=== PATIENT | female | born 1980 | race African-American/Black ===

== ENCOUNTER 2021-01-04 08:56 | Outpatient (CLI) | payer OTHER, SELFPAY ==
--- NOTE | ~2021-01-04 | MM_ITS ---
EXAMINATION: MM screening [facility] BI w berenice HISTORY: Screening mammogram TECHNIQUE: Craniocaudal and mediolateral oblique 3-D tomosynthesis images were obtained and synthetic 2-D images were generated. CAD analysis was submitted and interpreted. COMPARISON: 03/23/2019, 01/11/2014 BREAST PARENCHYMAL COMPOSITION: The breasts are heterogeneously dense, which may obscure small masses . FINDINGS: There is no evidence of suspicious mass, calcification, or architectural distortion to sugg est malignancy in either breast. There has been no suspicious interval change. IMPRESSION: 1. No mammographic evidence of malignancy. 2. Recommend routine screening mammography in one year. BI-RADS Category 1: Negative Reviewed, dictated and finalized at location A.
== END 2021-01-04 08:57 | disposition home or self-care (01) ==
LOC: ANHIMG 08:58
PROVIDERS: PCP Family Medicine; Visit Provider Nurse Practitioner Obstetrics & Gynecology
DX: Z12.31 Encounter for screening mammogram for malignant neoplasm of breast (principal)
CPT/HCPCS: 77063; 77067

== ENCOUNTER 2021-05-06 09:50 | Emergency (ER) | payer OTHER, SELFPAY ==
[2021-05-06 10:02] VITALS: BP 116/72; PULSE 77; RESP 18; TEMP 36.3; O2SAT 100
--- NOTE | 2021-05-06 10:05 | ED.GENADULT ---
HPI - General Adult General Chief complaint: Unspecified Stated complaint: Headache,Nausea,Fever Time Seen by Provider: 05/06/21 10:05 Source: patient and RN notes reviewed Mode of arrival: ambulatory Limitations: no limitations History of Present Illness HPI narrative: 40-year-old female presents to the [facility] with complaints of generalized body aches, fever, nausea and headache. Reports a fever of 99.7 this morning, has taken ibuprofen. Reports getting the Covid vaccine back in February. Denies any throat pain, ear pain. No sinus symptoms. Patient reports I just do not feel good. Related Data Home Medications Medication Instructions Recorded Confirmed bupropion HCl [Wellbutrin SR] 100 mg PO BID 09/17/19 05/06/21 brexpiprazole [Rexulti] 3 mg PO DAILY 05/06/21 05/06/21 citalopram 20 mg PO DAILY 05/06/21 05/06/21 trazodone 250 mg PO DAILY 05/06/21 05/06/21 Allergies Allergy/AdvReac Type Severity Reaction Status Date / Time peanut Allergy Severe Anaphylactic Verified 05/06/21 10:21 Shock aripiprazole Allergy Unknown Seizure Verified 05/06/21 10:21 codeine Allergy Unknown Shakes Verified 05/06/21 10:21 doxycycline Allergy Unknown Nausea Verified 05/06/21 10:21 paroxetine Allergy Unknown Weight gain Verified 05/06/21 10:21 Penicillins Allergy Unknown Skin Verified 05/06/21 10:21 Reaction prochlorperazine Allergy Unknown Asthma Verified 05/06/21 10:21 ASENAPINE MALEATE Allergy Unknown Unknown Uncoded 05/06/21 10:21 Review of Systems Review of Systems: All systems reviewed & are unremarkable except as noted in HPI and below Constitutional: Constitutional: Reports as per HPI, Reports no additional constitutional complaints, Reports body ache(s) and Reports fever(s) Eyes: Eyes: Reports no additional eye complaints ENT: Reports system reviewed and no additional complaints, except as documented, Denies change in voice, Denies dizziness, Denies ear discharge, Denies facial pain, Denies headache(s), Denies hoarseness, Denies lip swelling, Denies mouth pain, Denies nasal congestion, Denies nasal discharge, Denies neck pain, Denies post nasal drip, Denies sinus pain, Denies sinus pressure and Denies sore throat Cardiovascular: Cardiovascular: Reports no additional cardiovascular complaints and Denies chest pain Respiratory: Respiratory: Reports no additional respiratory complaints, Denies cough, Denies dyspnea and Denies dyspnea on exertion Gastrointestinal: Gastrointestinal: Reports no additional gastrointestinal complaints Musculoskeletal: Musculoskeletal: Reports as per HPI, Denies back pain, Reports myalgias, Denies arthralgias, Denies joint swelling, Denies muscle cramps, Denies muscle weakness and Denies stiffness Integumentary/Breasts: Skin/Breast: Reports system reviewed and no additional complaints, except as docu Neurologic: Reports as per HPI and Reports headache(s) Psychiatric: Psychiatric: Reports no additional psychiatric complaints Allergic/Immunologic: Allergic/Immunologic: Reports no additional allergic/immunologic complaints [facility] Past Medical History Medical History (Updated 05/06/21 @ 10:41 by Ema Diop) History of asthma History of depression Surgical History Surgical History H/O tubal ligation History of dilation and curettage History of hernia repair groin Family History Family History Father Cancer Mother No problems noted. Social History Social History Smoking status: Former smoker Smoking end date: 10/12/16 Alcohol intake: never Gender identity (if verbalized by the patient): Female Comments At the time of my signature, I reviewed and agree with the nursing past medical, surgical, social, and family history. There is no relevant family history pertinent to the patient complaint. Exam Const:
[2021-05-06] MEDS: ACETAMINOPHEN 500 MG TABLET 1000 MG PO (10:15)
[2021-05-07 15:38] LABS: SARS-CoV-2 RNA PCR Negative
== END 2021-05-06 10:47 | disposition home or self-care (01) ==
PROVIDERS: Emergency Provider Nurse Practitioner; PCP Family Medicine
DX: B34.9 Viral infection, unspecified (principal); Z20.822 Contact with and (suspected) exposure to COVID-19; Z87.891 Personal history of nicotine dependence; J45.909 Unspecified asthma, uncomplicated; F32.9 Major depressive disorder, single episode, unspecified
CPT/HCPCS: 87081; 87880; 99213; A9270; C9803; G0463; U0003; U0005

== ENCOUNTER 2021-10-13 14:36 | Emergency (ER) | payer OTHER, SELFPAY ==
[2021-10-13 15:13] VITALS: BP 129/87; PULSE 75; RESP 16; TEMP 36.6; O2SAT 99
--- NOTE | 2021-10-13 15:36 | ED.FEMALEGU ---
HPI - Female Genitourinary General Chief complaint: [employer] Stated complaint: bump on vaginal area Time Seen by Provider: 10/13/21 16:06 Source: patient and RN notes reviewed Mode of arrival: ambulatory Limitations: no limitations History of Present Illness HPI Narrative: 41-year-old female presents concern for a painful bump in the crease of her right thigh. She reports ear is been there for several days and is not improving. She reports a history of similar problems that have resolved on their own. She reports she tried to pop the area without relief. She denies genital lesions, dysuria. She denies MD elicited complaint: genital swelling and other Related Data Home Medications Medication Instructions Recorded Confirmed bupropion HCl [Wellbutrin SR] 100 mg PO BID 09/17/19 05/06/21 brexpiprazole [Rexulti] 3 mg PO DAILY 05/06/21 05/06/21 citalopram 20 mg PO DAILY 05/06/21 05/06/21 trazodone 250 mg PO DAILY 05/06/21 05/06/21 Allergies Allergy/AdvReac Type Severity Reaction Status Date / Time peanut Allergy Severe Anaphylactic Verified 10/13/21 16:13 Shock aripiprazole Allergy Unknown Seizure Verified 10/13/21 16:13 codeine Allergy Unknown Shakes Verified 10/13/21 16:13 doxycycline Allergy Unknown Nausea Verified 10/13/21 16:13 paroxetine Allergy Unknown Weight gain Verified 10/13/21 16:13 Penicillins Allergy Unknown Skin Verified 10/13/21 16:13 Reaction prochlorperazine Allergy Unknown Asthma Verified 10/13/21 16:13 ASENAPINE MALEATE Allergy Unknown Unknown Uncoded 05/06/21 10:21 Review of Systems Review of Systems: CONSTITUTIONAL: Denies malaise, chills, sweats, or fever. CARDIOVASCULAR: Denies chest pain, palpitations, or edema. RESPIRATORY: Denies cough or dyspnea. GASTROINTESTINAL: Denies abdominal pain, nausea, vomiting, diarrhea GENITOURINARY: Reports dysuria, frequency, urgency, suprapubic pressure. Denies flank pain or hematuria. SKIN: Reports a painful bump in the crease of her right thigh MUSCULOSKELETAL: Denies back pain or myalgia. All systems reviewed & are unremarkable except as noted in HPI and below PMFSH Past Medical History Medical History (Updated 10/13/21 @ 16:15 by Ema Hdz NP) History of asthma History of depression Surgical History Surgical History H/O tubal ligation History of dilation and curettage History of hernia repair groin Family History Family History Father Cancer Mother No problems noted. Social History Social History Smoking status: Former smoker Smoking end date: 10/12/16 Alcohol intake: never Gender identity (if verbalized by the patient): Female Comments At time of signature, agree with nursing past medical, surgical, social and family history. There is no relevant family history pertinent to the presenting complaint Exam Narrative: GENERAL: Well-appearing, well-nourished, and in no acute distress. HEAD: Normocephalic. EYES: PERRLA, conjunctivae clear. NECK: Supple. No lymphadenopathy CHEST: Clear to auscultation. No respiratory distress. HEART: Regular rate and rhythm. SKIN: Warm, dry, no rash. NEURO: Alert and oriented x3. PSYCH: Normal mood and affect : Female genitals images: 1. Hard palpable tender cyst, nonfluctuant without surrounding erythema, edema or induration Course Course Emergency Course: Patient is aware of diagnosis, understands and agrees to treatment plan. Anticipatory guidance given. Patient agrees to follow-up as directed and is aware of reasons to seek care at the emergency department. Portions of this record may have been created with voice recognition software Level of Care: Express Care Visit Vital Signs Vital signs: Vital Signs Temperature 97.8 F 10/13/21 15:13 Pulse Rate 75 10/13/21 15:13 Respiratory Rate 16 10/13/21 15
== END 2021-10-13 16:20 | disposition home or self-care (01) ==
PROVIDERS: Emergency Provider Nurse Practitioner; PCP Family Medicine
DX: L72.9 Follicular cyst of the skin and subcutaneous tissue, unspecified (principal); J45.909 Unspecified asthma, uncomplicated; F32.9 Major depressive disorder, single episode, unspecified; Z87.891 Personal history of nicotine dependence
CPT/HCPCS: 99213; G0463

== ENCOUNTER 2022-02-07 09:45 | Outpatient (CLI) | payer OTHER, SELFPAY ==
--- NOTE | ~2022-02-07 | MM_ITS ---
EXAMINATION: MM screening [facility] BI w berenice HISTORY: Screening TECHNIQUE: Craniocaudal and mediolateral oblique 3-D tomosynthesis images were obtained and synthetic 2-D images were generated. CAD analysis was submitted and interpreted. COMPARISON: Comparison to multiple prior studies sequentially, with oldest reviewed study dated 11/2013. BREAST PARENCHYMAL COMPOSITION: The breasts are heterogenously dense, which may obscure small masses FINDINGS: There is a new mass in the lower outer quadrant of the right breast posteriorly. There is a new focal asymmetry medially in the left breast on CC view, posteriorly. IMPRESSION: 1. New right breast mass and focal left breast asymmetry. 2. Additional mammographic views and possible breast ultrasound are recommended. BI-RADS Category 0: Incomplete: Needs additional imaging evaluation. Reviewed, dictated and finalized at location A. IMPRESSION: 1. New right breast mass and focal left breast asymmetry. 2. Additional mammographic views and possible breast ultrasound are recommended . BI-RADS Category 0: Incomplete: Needs additional imaging evaluation.
== END 2022-02-07 09:46 | disposition home or self-care (01) ==
LOC: ANHIMG 09:46
PROVIDERS: PCP Family Medicine; Visit Provider Nurse Practitioner Obstetrics & Gynecology
DX: Z12.31 Encounter for screening mammogram for malignant neoplasm of breast (principal); R92.8 Other abnormal and inconclusive findings on diagnostic imaging of breast
CPT/HCPCS: 77063; 77067

== ENCOUNTER 2022-03-14 11:16 | Outpatient (CLI) | payer OTHER, SELFPAY ==
--- NOTE | ~2022-03-14 | MMUS_ITS ---
EXAMINATION: MM diagnostic [facility] BI w berenice, US breast BI complete HISTORY: New posterior lower outer quadrant right breast mass and focal left breast asymmetry reporte d on February 07, 2022 bilateral screening mammogram examinations TECHNIQUE: Additional 3-D tomosynthesis images of both breasts were performed and synthetic 2-D image s were generated. CAD analysis was submitted and interpreted. High resolution complete bilateral redd st ultrasound including all 4 quadrants and subareolar areas was performed. COMPARISON: bilateral screening mammogram FINDINGS: MAMMOGRAPHIC FINDINGS: Approximately 6.3 x 5.8 x 15 mm circumscribed opacity is noted in the inner aspect of the posterior l ower outer right breast.. There is heterogeneously dense stroma in both breasts, which may obscure masses. Bilateral complete b reast ultrasound examination was performed. ULTRASOUND: Right breast: Corresponding to the mammographic posterior lower outer right breast circumscribed mass is a circumsc ribed irregular hypoechoic solid mass measuring approximately 6.9 x 11 x 8 mm. No internal vascularit y or posterior shadowing is evident. Ultrasound-guided biopsy is recommended Right breast 10:00 5 cm from nipple: Parallel circumscribed hypoechoic 2.7 x 5 x 4.9 mm lesion withou t internal vascularity or suspicious shadowing.. Left breast: 11 35 cm from nipple: 3.5 mm x 6 cyst IMPRESSION: 1. Irregular circumscribed hypoechoic solid mass of right breast in the posterior 7:00 position 2. Ultrasound-guided biopsy of right breast 7:00 lesion is recommended Reviewed, dictated and finalized at location A. Dr. Bryant telephoned the report and ultrasound-guided biopsy recommendation of the right breast 7:00 l esion on 03/14/2022 at 1249 hours to Deirdre [employer] Supervisor. IMPRESSION: 1. Irregular circumscribed hypoechoic solid mass of right breast in the posteri or 7:00 position 2. Ultrasound-guided biopsy of right breast 7:00 lesion is recommended
== END 2022-03-14 11:17 | disposition home or self-care (01) ==
PROVIDERS: PCP Family Medicine; Visit Provider Nurse Practitioner Obstetrics & Gynecology
DX: N63.10 Unspecified lump in the right breast, unspecified quadrant (principal); R92.8 Other abnormal and inconclusive findings on diagnostic imaging of breast
CPT/HCPCS: 76641; 77062; 77066; G0279

== ENCOUNTER 2022-06-06 13:41 | Emergency (ER) | payer OTHER, SELFPAY ==
--- NOTE | ~2022-06-06 | XR_ITS ---
EXAMINATION: XR thoracic spine 3V DATE: 06/06/2022 14:43 INDICATION: Neck and back pain TECHNIQUE: AP, lateral and lateral swimmer's views of the thoracic spine were obtained. COMPARISON: None. FINDINGS: There is no fracture, dislocation, or subluxation. The vertebral body heights, alignment, a nd intervertebral disc spaces are normal. The paravertebral soft tissues are unremarkable. IMPRESSION: 1. No acute osseous abnormality. Reviewed, dictated and finalized at location B.
--- NOTE | ~2022-06-06 | XR_ITS ---
EXAMINATION:XR cervical spine 4-5V DATE: 06/06/2022 14:43 INDICATION: Neck pain TECHNIQUE: AP, lateral, lateral swimmers and odontoid views of the cervical spine are provided. COMPARISON: 06/17/2016 FINDINGS: There is straightening of the cervical spine which can be positional or due to muscular spa sm. Alignment is normal. The odontoid is intact. No fracture is identified. Vertebral body heights an d disk spaces are normal. Prevertebral soft tissues are normal. IMPRESSION: 1. Straightening of the cervical spine which may be due to muscular spasm or positioning. No acute os seous abnormality. Reviewed, dictated and finalized at location B. IMPRESSION: 1. Straightening of the cervical spine which may be due to muscular spasm or po sitioning. No acute osseous abnormality.
[2022-06-06 13:51] VITALS: BP 122/81; PULSE 79; RESP 16; TEMP 36.4; O2SAT 100
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
== END 2022-06-06 15:16 | disposition home or self-care (01) ==
PROVIDERS: Emergency Provider Nurse Practitioner
DX: S29.012A Strain of muscle and tendon of back wall of thorax, initial encounter (principal); V43.52XA Car driver injured in collision with other type car in traffic accident, initial encounter; S16.1XXA Strain of muscle, fascia and tendon at neck level, initial encounter; Z87.891 Personal history of nicotine dependence; J45.909 Unspecified asthma, uncomplicated; F32.A Depression, unspecified
CPT/HCPCS: 72050; 72072; 99213; G0463

== ENCOUNTER 2022-06-09 13:04 | Emergency (ER) | payer OTHER, SELFPAY ==
[2022-06-09 13:22] VITALS: BP 123/76; PULSE 98; RESP 18; TEMP 36.6; O2SAT 100
--- NOTE | 2022-06-09 13:50 | ED.BACK ---
HPI - Back Pain/Injury General Chief Complaint: Back Pain/Injury Stated Complaint: Back Pain, Neck Pain Time Seen by Provider: 06/09/22 13:50 Source: patient, family and RN notes reviewed Mode of arrival: ambulatory Limitations: no limitations History of Present Illness HPI Narrative: 41-year-old female returns to the [facility] with complaints of back pain. Was evaluated on June 06 and had C-spine and T-spine x-rays done which were all negative. Patient reports continued pain in the same areas of the mid back and lower neck. Walks with a normal gait. No loss or retention of bowel or bladder. No numbness or tingling in extremities. Patient requesting a work note for today and tomorrow. MD elicited complaint: back pain Related Data Home Medications Medication Instructions Recorded Confirmed trazodone 100 mg tablet 250 mg PO DAILY 05/06/21 06/09/22 Viivid 06/06/22 cariprazine 1.5 mg capsule 1.5 mg PO DAILY 06/06/22 06/09/22 (Vraylar) cyclobenzaprine 10 mg tablet 10 mg PO DAILY 06/06/22 06/09/22 ibuprofen 800 mg tablet 800 mg PO TID 06/06/22 06/09/22 Allergies Allergy/AdvReac Type Severity Reaction Status Date / Time peanut Allergy Severe Anaphylactic Verified 06/09/22 13:55 Shock aripiprazole Allergy Unknown Seizure Verified 06/09/22 13:55 codeine Allergy Unknown Shakes Verified 06/09/22 13:55 doxycycline Allergy Unknown Nausea Verified 06/09/22 13:55 paroxetine Allergy Unknown Weight gain Verified 06/09/22 13:55 Penicillins Allergy Unknown Skin Verified 06/09/22 13:55 Reaction prochlorperazine Allergy Unknown Asthma Verified 06/09/22 13:55 ASENAPINE MALEATE Allergy Unknown Unknown Uncoded 06/09/22 13:55 Review of Systems Review of Systems: All systems reviewed & are unremarkable except as noted in HPI and below Constitutional: Constitutional: Reports no additional constitutional complaints and Denies weakness Eyes: Eyes: Reports no additional eye complaints ENT: Reports system reviewed and no additional complaints, except as documented Cardiovascular: Cardiovascular: Reports no additional cardiovascular complaints and Denies chest pain Respiratory: Respiratory: Reports no additional respiratory complaints Gastrointestinal: Gastrointestinal: Reports no additional gastrointestinal complaints and Denies abdominal pain Musculoskeletal: Musculoskeletal: Reports as per HPI, Reports back pain and Denies numbness Integumentary/Breasts: Skin/Breast: Reports system reviewed and no additional complaints, except as docu Neurologic: Reports system reviewed and no additional complaints, except as documented, Denies focal weakness, Denies numbness and Denies weakness Psychiatric: Psychiatric: Reports no additional psychiatric complaints Allergic/Immunologic: Allergic/Immunologic: Reports no additional allergic/immunologic complaints PMFSH Past Medical History Medical History (Updated 06/10/22 @ 18:24 by Ema Diop APRN) History of asthma History of depression Surgical History Surgical History H/O tubal ligation History of dilation and curettage History of hernia repair groin Family History Family History Father Cancer Mother No problems noted. Social History Social History Smoking status: Former smoker Smoking end date: 10/12/16 Alcohol intake: never Gender identity (if verbalized by the patient): Female Comments At the time of my signature, I reviewed and agree with the nursing past medical, surgical, social, and family history. There is no relevant family history pertinent to the patient complaint. Exam Const: General: healthy appearing, no acute distress and alert Nutritional Appearance: well nourished Orientation/consciousness: patient oriented x3 Limitations: no limitations HENMT: He
== END 2022-06-09 14:09 | disposition home or self-care (01) ==
PROVIDERS: Emergency Provider Nurse Practitioner; PCP Family Medicine
DX: S16.1XXA Strain of muscle, fascia and tendon at neck level, initial encounter (principal); V49.9XXA Car occupant (driver) (passenger) injured in unspecified traffic accident, initial encounter; M54.6 Pain in thoracic spine; Z87.891 Personal history of nicotine dependence; J45.909 Unspecified asthma, uncomplicated; F32.A Depression, unspecified
CPT/HCPCS: 99211; G0463

== ENCOUNTER 2022-09-29 10:24 | Emergency (ER) | payer OTHER, SELFPAY ==
--- NOTE | ~2022-09-29 | XR_ITS ---
EXAMINATION: XR chest 2V DATE: 09/29/2022 11:34 INDICATION: Wheezing. TECHNIQUE: Frontal and lateral views of the chest were obtained. COMPARISON: Chest 2 views 06/18/19, CT abdomen and pelvis 02/06/2015 FINDINGS: There is blunting of left lateral costophrenic angle. No pneumothorax. The heart size is no rmal. IMPRESSION: 1. Blunting of left lateral costophrenic angle, new from 06/18/2019, which may be scarring, extrapleura l fat, or a tiny pleural effusion. Reviewed, dictated and finalized at location A. [employer] IMPRESSION: 1. Blunting of left lateral costophrenic angle, new from 06/18/2019, which may be scarring, extrapleural fat, or a tiny pleural effusion.
[2022-09-29 10:37] VITALS: BP 131/85; PULSE 112; RESP 16; TEMP 30.6; O2SAT 98
--- NOTE | 2022-09-29 11:19 | ED.URI ---
HPI - URI/Sore Throat General Chief Complaint: Upper Respiratory Infection Stated Complaint: Cough, SOB, Nausea, Vomiting Source: patient Mode of arrival: ambulatory Limitations: no limitations History of Present Illness HPI Narrative: 42-year-old female presents to [facility] with complaints of cough, congestion, nausea, shortness of breath, wheezing and fevers up to 102 for the past 3 days. Patient has been taking [id number] Mucinex with minimal relief. Patient reports that her daughter was recently ill with similar symptoms. Patient denies recent travel. Patient is vaccinated for COVID and influenza. Patient is an ex-smoker MD elicited complaint: fever, cough, rhinorrhea and nasal congestion Onset (ago): day(s) (3) Able to tolerate fluids by mouth: Yes Treatments prior to arrival: cold medicine Related Data Home Medications Medication Instructions Recorded Confirmed cariprazine 1.5 mg capsule 3 mg PO DAILY 08/01/22 09/29/22 (Vraylar) trazodone 100 mg tablet 200 mg PO DAILY 08/01/22 09/29/22 vilazodone 10 mg tablet (Viibryd) 10 mg PO DAILY 08/01/22 09/29/22 Allergies Allergy/AdvReac Type Severity Reaction Status Date / Time peanut Allergy Severe Anaphylactic Verified 08/01/22 08:34 Shock aripiprazole Allergy Unknown Seizure Verified 08/01/22 08:34 codeine Allergy Unknown Shakes Verified 08/01/22 08:34 doxycycline Allergy Unknown Nausea Verified 06/09/22 13:55 paroxetine Allergy Unknown Weight gain Verified 08/01/22 08:34 Penicillins Allergy Unknown Skin Verified 08/01/22 08:34 Reaction prochlorperazine Allergy Unknown Asthma Verified 08/01/22 08:34 ASENAPINE MALEATE Allergy Unknown Unknown Uncoded 08/01/22 08:34 Review of Systems Constitutional: Constitutional: Reports chills, Reports fatigue, Reports fever(s) and Denies weakness ENT: Denies dysphagia, Denies vertigo, Denies dizziness, Denies epistaxis, Reports nasal congestion and Reports sore throat Respiratory: Respiratory: Reports cough, Reports dyspnea and Reports wheezing Gastrointestinal: Gastrointestinal: Denies diarrhea, Denies nausea and Denies vomiting Integumentary/Breasts: Skin/Breast: Denies rash Neurologic: Denies vertigo and Denies dizziness Allergic/Immunologic: Allergic/Immunologic: Denies lip swelling, Denies throat swelling and Denies tongue swelling PMFSH Past Medical History Medical History History of asthma History of depression Surgical History Surgical History H/O breast biopsy (~04/2022) handled by Dr.Scott Abernathy H/O tubal ligation History of dilation and curettage History of hernia repair groin Family History Family History Father Cancer Mother No problems noted. Social History Social History Social History: Caffeine-soda coffee daily Years smoked: 20 Smoking status: Current every day smoker Smoking end date: 10/12/16 Alcohol intake: never Gender identity (if verbalized by the patient): Female Comments At time of signature, I agree with nursing past medical, surgical, social and family history. There is no relevant family history pertinent to the presenting complaint. Exam Const: General: healthy appearing, no acute distress and alert Nutritional Appearance: well nourished Orientation/consciousness: patient oriented x3 Limitations: no limitations HENMT: Head: normal to inspection Ears: external ears normal Face/Nose/Sinus: Normal external nose present Face and sinus: normal facial exam Mouth: Yes Normal oral and palatal mucosa present and Yes moist mucous membranes Teeth and gingiva: dentition normal Throat: posterior oropharynx normal and uvula midline Resp: Effort & Inspection: normal respiratory effort Auscultation: no crackles, no
== END 2022-09-29 12:02 | disposition home or self-care (01) ==
PROVIDERS: Emergency Provider Nurse Practitioner Family; PCP Family Medicine
DX: J10.1 Influenza due to other identified influenza virus with other respiratory manifestations (principal); Z20.822 Contact with and (suspected) exposure to COVID-19; Z87.891 Personal history of nicotine dependence; J45.909 Unspecified asthma, uncomplicated; F32.A Depression, unspecified
CPT/HCPCS: 71046; 87426; 87804; 99213; C9803; G0463

== ENCOUNTER 2022-12-04 10:26 | Outpatient (CLI) | payer OTHER, SELFPAY ==
--- NOTE | ~2022-12-04 | XR_ITS ---
XR chest 2V 12/04/2022 10:43 Indication: Cough and congestion Procedure: 2 view chest Comparison: 09/29/2022 Findings: Stable blunting left lateral costophrenic recess, most likely extrapleural fat or pleural t hickening. Heart size normal. No focal pneumonia, edema or pneumothorax. Impression: 1: No acute cardiopulmonary disease. Reviewed, dictated and finalized at location L. [employer] Impression: 1: No acute cardiopulmonary disease.
== END 2022-12-04 10:27 | disposition home or self-care (01) ==
PROVIDERS: PCP Family Medicine; Visit Provider Family Medicine
DX: R05.9 Cough, unspecified (principal)
CPT/HCPCS: 71046

== ENCOUNTER 2024-01-22 08:15 | Outpatient (CLI) | payer OTHER, SELFPAY ==
--- NOTE | ~2024-01-22 | MM_ITS ---
EXAMINATION: MM screening rebekah BI w berenice HISTORY: Screening TECHNIQUE: Craniocaudal and mediolateral oblique 3-D tomosynthesis images were obtained and synthetic 2-D images were generated. CAD analysis was submitted and interpreted. COMPARISON: Comparison to multiple prior studies sequentially, with oldest reviewed study dated 03/23. BREAST PARENCHYMAL COMPOSITION: Dense: The breasts are heterogeneously dense, which may obscure small masses FINDINGS: The left breast is stable without evidence for malignancy. There is a stable mass in the lo wer outer quadrant of the right breast posteriorly. There is a new smaller mass adjacent to this mass with central calcifications. IMPRESSION: 1. Cluster of masses lower outer quadrant of the right breast posteriorly, the smaller of which is ne w compared with prior study. 2. Additional mammographic views and possible breast ultrasound are recommended. BI-RADS Category 0: Incomplete: Needs additional imaging evaluation. Reviewed, dictated and finalized at location A. IMPRESSION: 1. Cluster of masses lower outer quadrant of the right breast posteriorly, the smaller of which is new compared with prior study. 2. Additional mammographic views and possible breast ultrasound are recommended . BI-RADS Category 0: Incomplete: Needs additional imaging evaluation.
== END 2024-01-22 08:16 | disposition home or self-care (01) ==
LOC: ANHIMG 08:17
PROVIDERS: PCP Family Medicine; Visit Provider Nurse Practitioner Obstetrics & Gynecology
DX: Z12.31 Encounter for screening mammogram for malignant neoplasm of breast (principal); N63.13 Unspecified lump in the right breast, lower outer quadrant
CPT/HCPCS: 77063; 77067

== ENCOUNTER 2024-02-29 12:43 | Outpatient (CLI) | payer OTHER, SELFPAY ==
--- NOTE | ~2024-02-29 | MMUS_ITS ---
EXAMINATION: MM diagnostic rebekah RT w berenice, US breast RT limited HISTORY: Follow-up right breast mass TECHNIQUE: Additional 3-D tomosynthesis images of the right breast were performed and synthetic 2-D i mages were generated. CAD analysis was submitted and interpreted. High resolution Limited right breas t ultrasound was performed. COMPARISON: Comparison to multiple prior studies sequentially, with oldest reviewed study dated 03/23. BREAST PARENCHYMAL COMPOSITION: Dense: The breasts are heterogeneously dense, which may obscure small masses FINDINGS: MAMMOGRAPHIC FINDINGS: There are masses located in the lower outer quadrant of the right breast posteriorly. There are no parikh spicious calcifications or architectural distortion. ULTRASOUND: Limited right breast ultrasound: At 6:00, 4 cm from the nipple there is a 3 mm cyst. At 7:00, 7 cm from the nipple, there is an oval hypoechoic mass with parallel orientation, no posteri or shadowing and no internal vascularity measuring 11 mm. There is an adjacent round heterogeneous hy poechoic mass measuring 5 mm with internal echogenic foci. The larger of 11 mm mass is stable compare d with 03/14/2022. The smaller round mass was not definitely seen on prior examination. At 9:00, 6 cm from the nipple, there is a 5 mm minimally complicated cyst. IMPRESSION: 1. New 5 mm mass of the right breast at 7:00, 7 cm from the nipple. 2. Ultrasound-guided right breast biopsy recommended. BI-RADS category 4, suspicious findings. Reviewed, dictated and finalized at location A. IMPRESSION: 1. New 5 mm mass of the right breast at 7:00, 7 cm from the nipple. 2. Ultrasound-guided right breast biopsy recommended. BI-RADS category 4, suspicious findings.
== END 2024-02-29 12:44 | disposition home or self-care (01) ==
LOC: ANHIMG 12:44
PROVIDERS: PCP Family Medicine; Visit Provider Nurse Practitioner Obstetrics & Gynecology
DX: R92.8 Other abnormal and inconclusive findings on diagnostic imaging of breast (principal); N63.13 Unspecified lump in the right breast, lower outer quadrant
CPT/HCPCS: 76642; 77061; 77065; G0279